=== PATIENT | male | born 1955 | race Caucasian/White ===

== ENCOUNTER 2021-12-11 15:08 | Inpatient (IN) | payer MEDICARE, BC, MEDICAID ==
[~2021-12-11] VITALS: Ht 177.8 cm; Wt 80.8 kg
[2021-12-11] MEDS ORDERED: acetaminophen 325mg tablet PO PRN (17:55)
[2021-12-11] MEDS ORDERED: magnesium hydroxide 30ml (MOM) UD suspension PO PRN (17:55)
[2021-12-11] MEDS ORDERED: loperamide 2mg capsule PO PRN (17:55)
[2021-12-11] MEDS ORDERED: mag hydrox/Alum hydrox/simeth 30ml oral suspension PO PRN (17:55)
--- NOTE | 2021-12-11 17:58 | NUR ---
Admit note: PT admitted today on 5150 for DTS from [facility] at 1730. Pt stated he wanted to end his life. He wants to "blow his brains out or drive his truck off of a sai." Pt has history of depression, HTN, AFIB ETOH.
[2021-12-11 19:00] VITALS: BP 152/95
[2021-12-11] MEDS ORDERED: ASPI81TA52 PO (19:43)
[2021-12-11] MEDS ORDERED: POTA-192 PO (19:44)
[2021-12-11] MEDS ORDERED: THIA100T70 PO (19:46)
[2021-12-11] MEDS ORDERED: CYCL-394 PO (19:48)
[2021-12-11] MEDS ORDERED: FOLI0.4T6 PO (19:49)
[2021-12-11] MEDS ORDERED: IBUP-1984 PO (19:51)
[2021-12-11] MEDS ORDERED: LISI20TA28 PO (19:52)
[2021-12-11] MEDS ORDERED: LEVO150T PO (19:52)
[2021-12-11] MEDS ORDERED: MAGN200T5 PO (19:53)
[2021-12-11] MEDS ORDERED: OMEP20TA23 PO (19:54)
[2021-12-11] MEDS ORDERED: SPIR25TA5 PO (19:55)
[2021-12-11] MEDS ORDERED: lisinopril 10 MG tablet PO ONE (20:55)
[2021-12-11] MEDS: cyclobenzaprine 10mg tablet PO PRN (21:12)
[2021-12-11] MEDS: traZODone 50mg tablet PO PRN (21:12)
[2021-12-11] MEDS: acetaminophen 325mg tablet PO PRN (21:20)
[2021-12-12 08:00] VITALS: BP 101/62
[2021-12-12] MEDS: pantoprazole 40mg Tablet.DR PO SCH (08:05)
[2021-12-12] MEDS: folic acid 0.4mg tablet PO SCH (08:05)
[2021-12-12] MEDS: spironolactone 25 MG tablet PO SCH (08:06)
[2021-12-12] MEDS: aspirin 81mg, enteric-coated 1 TAB TABLET.DR PO SCH (08:06)
[2021-12-12] MEDS: thiamine 100mg tablet PO SCH (08:06)
[2021-12-12 09:19] LABS: HEMOGLOBIN A1C 5.4 % (4.5-6.2)
[2021-12-12 09:30] LABS: CHOL/HDL RATIO 3.8 (0.00-4.99); CHOLESTEROL 181 MG/DL (0-200); HDL CHOLESTEROL 48 MG/DL (35-60); LDL CHOLESTEROL 112 MG/DL (50-100); MAGNESIUM 1.6 MG/DL (1.5-2.4)
[2021-12-12 15:08] LABS: TRIGLYCERIDES 99 MG/DL (20-135)
[2021-12-12 19:36] VITALS: BP 99/60
[2021-12-12] MEDS: traZODone 50mg tablet PO PRN (20:22)
[2021-12-12] MEDS: sertraline 25mg tablet PO SCH (20:24)
[2021-12-12 20:31] VITALS: BP 125/79
[2021-12-12] MEDS: lisinopril 10 MG tablet PO SCH (20:31)
--- NOTE | 2021-12-13 05:44 | NUR ---
Nursing Progress Note Problem: PT admitted today on 5150 for DTS from [facility] at 1730. Pt stated he wanted to end his life. He wants to "blow his brains out or drive his truck off of a sai." Pt has history of depression, HTN, AFIB ETOH. Interventions: Maintained a safe and supportive environment, ensured contract for safety, provided clear and simple instructions, maintained fall precautions, monitored behavior and provided redirection as needed, and maintained Q 15min safety checks. Response: Patient is pleasant and cooperative with care; compliant with medication. PRN Trazodone provided. Patient denies SI, HI, A/VH this shift; no apparent delusions expressed. He was observed watching TV and participated in HS snack prior to bed; observed sleeping and does not appear to be having difficulty. Plan: Pt. requires a safe and supportive environment, medication titration until effective dose, needs to be monitored for crisis stabilization.
[2021-12-13] MEDS ORDERED: levoTHYROXINE 25mcg tablet PO SCH (07:00)
[2021-12-13 08:00] VITALS: BP 106/69
[2021-12-13] MEDS ORDERED: sertraline 25mg tablet PO SCH (08:00)
[2021-12-13] MEDS: folic acid 0.4mg tablet PO SCH (08:32)
[2021-12-13] MEDS: pantoprazole 40mg Tablet.DR PO SCH (08:33)
[2021-12-13] MEDS: thiamine 100mg tablet PO SCH (08:33)
[2021-12-13] MEDS: levoTHYROXINE 75mcg tablet PO SCH (08:33)
[2021-12-13] MEDS: aspirin 81mg, enteric-coated 1 TAB TABLET.DR PO SCH (08:33)
[2021-12-13] MEDS: spironolactone 25 MG tablet PO SCH (08:34)
[2021-12-13] MEDS: ibuprofen tablet 400 MG TABLET PO PRN (10:32)
--- NOTE | 2021-12-13 16:22 | NUR ---
Nursing Progress Note: Giorgi Problem: PT admitted today on 5150 for DTS from [facility] at 1730. Pt stated he wanted to end his life. He wants to "blow his brains out or drive his truck off of a sai." Pt has history of depression, HTN, AFIB ETOH. Interventions: Maintained a safe and supportive environment, ensured contract for safety, provided clear and simple instructions, maintained fall precautions, monitored behavior and provided redirection as needed, and maintained Q 15min safety checks. Response: Patient awake and reading a book, he took his medication without hesitation and was given ibuprofen for c/o back pain. Pt. denies SI at this moment and denies HI, A/VH, he became agitated easily during our conversation and stated I guess Im fucking better Im eating food instead of drinking my breakfast he was able to settle himself but quickly seemed angry with most interaction. Pt. ate his meals in the dining room with cohorts but isolates to self, and spent most of the shift in bed reading. Pt. presents with fair hygiene, un brushed hair, and wearing unit scrubs. Plan: Pt. requires a safe and supportive environment, medication titration until effective dose, needs to be monitored for crisis stabilization.
[2021-12-13 20:00] VITALS: BP 100/60
[2021-12-13] MEDS: lisinopril 10 MG tablet PO SCH (21:00)
[2021-12-13] MEDS: traZODone 50mg tablet PO PRN (21:32)
[2021-12-13] MEDS: sertraline 25mg tablet PO SCH (21:32)
--- NOTE | 2021-12-14 02:02 | NUR ---
Nursing Progress Note: Giorgi Problem: PT admitted today on 5150 for DTS from [facility] at 1730. Pt stated he wanted to end his life. He wants to "blow his brains out or drive his truck off of a sai." Pt has history of depression, HTN, AFIB ETOH. Interventions: Maintained a safe and supportive environment, ensured contract for safety, provided clear and simple instructions, maintained fall precautions, monitored behavior and provided redirection as needed, and maintained Q 15min safety checks. Response: Patient in room at shift change. The patient mostly isolated to self. The patient denies A/VH SI HI. The patient made conversations brief but otherwise polite and cooperative. The patient ate snack in the community room at snack change. The patient requested Trazodone for sleep. The patient took all evening meds w/o complications. The patient went to bed shortly after. Plan: Pt. requires a safe and supportive environment, medication titration until effective dose, needs to be monitored for crisis stabilization.
[2021-12-14] MEDS: aspirin 81mg, enteric-coated 1 TAB TABLET.DR PO SCH (07:35)
[2021-12-14] MEDS: pantoprazole 40mg Tablet.DR PO SCH (07:35)
[2021-12-14] MEDS: levoTHYROXINE 75mcg tablet PO SCH (07:35)
[2021-12-14] MEDS: spironolactone 25 MG tablet PO SCH (07:36)
[2021-12-14] MEDS: thiamine 100mg tablet PO SCH (07:36)
[2021-12-14] MEDS: folic acid 0.4mg tablet PO SCH (07:36)
[2021-12-14 08:00] VITALS: BP 124/71
--- NOTE | 2021-12-14 16:59 | NUR ---
Nursing Progress Note: Giorgi Problem: Pt. admitted today on 5150 for DTS from [facility] at 1730. Pt stated he wanted to end his life. He wants to "blow his brains out or drive his truck off of a sai." Pt has history of depression, HTN, AFIB ETOH. Interventions: Maintained a safe and supportive environment, ensured contract for safety, provided clear and simple instructions, maintained fall precautions, monitored behavior and provided redirection as needed, and maintained Q 15min safety checks. Response: Patient received awake and reading a book, he reported I slept well although sleep hours documented were 3.5 hrs. He took his medication without hesitation and refused needing ibuprofen for his back ache. Pt. presents calmer then yesterday and denies SI, HI, A/VH and continues with his plan to go homer to [place] when DCd. Pt. socialized with his staff in his room throughout the shift. He is disheveled and his hygiene is fair. He spent most of the shift in his room, and ate all meals in the dining room. Plan: Pt. requires a safe and supportive environment, medication titration until effective dose, needs to be monitored for crisis stabilization.
[2021-12-14 20:00] VITALS: BP 120/76
[2021-12-14] MEDS: traZODone 50mg tablet PO PRN (20:47)
[2021-12-14] MEDS: sertraline 25mg tablet PO SCH (20:47)
[2021-12-14] MEDS: lisinopril 10 MG tablet PO SCH (20:47)
--- NOTE | 2021-12-15 01:26 | NUR ---
Nursing Progress Note: Giorgi Problem: PT admitted today on 5150 for DTS from [facility] at 1730. Pt stated he wanted to end his life. He wants to "blow his brains out or drive his truck off of a sai." Pt has history of depression, HTN, AFIB ETOH. Interventions: Maintained a safe and supportive environment, ensured contract for safety, provided clear and simple instructions, maintained fall precautions, monitored behavior and provided redirection as needed, and maintained Q 15min safety checks. Response: The patient was laying in bed conversing with roommate at shift change. The patient walked around the unit and conversed with peers and sat in the community room on occasion. The patient denies A/VH SI HI. Patient did claim to hear voices after he had been drinking for awhile but doesn't now that he is sober. The patient took evening meds w/o complications. The patient went to bed shortly after. Plan: Pt. requires a safe and supportive environment, medication titration until effective dose, needs to be monitored for crisis stabilization.
[2021-12-15 07:37] VITALS: BP 109/67
[2021-12-15] MEDS: spironolactone 25 MG tablet PO SCH (07:58)
[2021-12-15] MEDS: pantoprazole 40mg Tablet.DR PO SCH (07:58)
[2021-12-15] MEDS: levoTHYROXINE 75mcg tablet PO SCH (07:58)
[2021-12-15] MEDS: aspirin 81mg, enteric-coated 1 TAB TABLET.DR PO SCH (07:58)
[2021-12-15] MEDS: folic acid 0.4mg tablet PO SCH (07:58)
[2021-12-15] MEDS: thiamine 100mg tablet PO SCH (07:58)
--- NOTE | 2021-12-15 15:34 | NUR ---
[employer] Client attended group. Group focus was resilience and responding to change, specifically psychosocial education about change-related anxiety, and coping mechanisms. Group was a peer discussion, sharing ideas. Peer ideas included smells (essential oils, things that smell like peppermint), talking to someone, walking, hydrating and eating, trying to get good sleep, and avoiding using substances specifically alcohol to try to get some sleep. Client shared using alcohol for anxiety, and that he actually sleeps better when he is sober. Client participated in group appropriately, and actively.
--- NOTE | 2021-12-15 16:07 | NUR ---
Nursing Progress Note: Giorgi Problem: Pt. admitted today on 5150 for DTS from [facility] at 1730. Pt stated he wanted to end his life. He wants to "blow his brains out or drive his truck off of a sai." Pt has history of depression, HTN, AFIB ETOH. Interventions: Maintained a safe and supportive environment, ensured contract for safety, provided clear and simple instructions, maintained fall precautions, monitored behavior and provided redirection as needed, and maintained Q 15min safety checks. Response: Patient received awake and lying in bed. He took his medications without hesitation and went to breakfast. Pt. denies SI, HI, A/VH and plans to DC to [place]. Pt. stated Im tired of these fucking eggs, every day the same fucking eggs He returned to his room after breakfast and socialized with staff. Pt. presents as disheveled and has the same clothes on from yesterday. He ate all meals in the main dining room with cohorts socializing at times. Plan: Pt. requires a safe and supportive environment, medication titration until effective dose, needs to be monitored for crisis stabilization.
[2021-12-15] MEDS: ibuprofen tablet 400 MG TABLET PO PRN (16:56)
[2021-12-15 19:21] VITALS: BP 106/56
[2021-12-15] MEDS: traZODone 50mg tablet PO PRN (20:15)
[2021-12-15] MEDS: sertraline 25mg tablet PO SCH (20:15)
[2021-12-15] MEDS: lisinopril 10 MG tablet PO SCH (20:17)
--- NOTE | 2021-12-16 02:00 | NUR ---
Nursing Progress Note: Giorgi Problem: PT admitted today on 5150 for DTS from [facility] at 1730. Pt stated he wanted to end his life. He wants to "blow his brains out or drive his truck off of a sai." Pt has history of depression, HTN, AFIB ETOH. Interventions: Maintained a safe and supportive environment, ensured contract for safety, provided clear and simple instructions, maintained fall precautions, monitored behavior and provided redirection as needed, and maintained Q 15min safety checks. Response: Patient was in bed at change of shift. Patient did get up for snack and RN chatted with patient while he was in line. Patient was smiling and in no distress. RN gave patient his night time meds. Patient denies SI/HI and denies A/V hallucinations. Patient given his meds and patient took as prescribed. Patient's oxygen sat dropped this evening per electronic warfare technician. The tech attempted to assist patient with his oxygen but patient did not want the help. Patient denies SOB at this time. Plan: Pt. requires a safe and supportive environment, medication titration until effective dose, needs to be monitored for crisis stabilization.
[2021-12-16 07:32] VITALS: BP 105/58
--- NOTE | 2021-12-16 07:37 | NUR ---
Initial: Pt admitted w/ major depressive disorder per EMR. Currently on Heart Healthy diet w/ mostly 100% intake of meals meeting est needs at this time. Recommend liberalizing to Regular diet. LBM 12/15. Will continue to monitor. Recs: 1. Liberalize to Regular diet 2. Bowel care PRN 3. Routine thiamine, folic acid for EtOH hx 4. Weekly wts Addendum: 12/16/21 at [address] Amended: Links added.
[2021-12-16] MEDS: levoTHYROXINE 75mcg tablet PO SCH (08:02)
[2021-12-16] MEDS: spironolactone 25 MG tablet PO SCH (08:02)
[2021-12-16] MEDS: aspirin 81mg, enteric-coated 1 TAB TABLET.DR PO SCH (08:02)
[2021-12-16] MEDS: pantoprazole 40mg Tablet.DR PO SCH (08:03)
[2021-12-16] MEDS: naltrexone 50mg tablet PO SCH (08:03)
[2021-12-16] MEDS: thiamine 100mg tablet PO SCH (08:03)
[2021-12-16] MEDS: folic acid 0.4mg tablet PO SCH (08:03)
[2021-12-16 12:40] VITALS: BP 114/56
--- NOTE | 2021-12-16 17:49 | NUR ---
Nursing Progress Note: Problem: Patient admitted today on 5150 for DTS from [facility] at 1730. Pt stated he wanted to end his life. He wants to "blow his brains out or drive his truck off of a sai." Pt has history of depression, HTN, AFIB ETOH. Interventions: Maintained a safe and supportive environment, ensured contract for safety, provided clear and simple instructions, maintained fall precautions, monitored behavior and provided redirection as needed, and maintained Q 15min safety checks. Response: Patient awakened at approximately 0745 and went to the Community Room for breakfast. Patient was pleasant and cooperative at all time today. Smiling and talking with peers or watching TV in the Community Room. Patient denies SI/AH/VH. Patient rested in bed for short periods of time after meals, then would return to the Community Room to ambulating in the hallway or watching TV. Patient took his medications without hesitation. Patient states Im feeling just a little bit better today. Plan: Pt. requires a safe and supportive environment, medication titration until effective dose, needs to be monitored for crisis stabilization.
[2021-12-16 20:00] VITALS: BP 117/82
[2021-12-16] MEDS: sertraline 25mg tablet PO SCH (20:19)
[2021-12-16] MEDS: lisinopril 10 MG tablet PO SCH (20:19)
[2021-12-16] MEDS: acetaminophen 325mg tablet PO PRN (20:21)
--- NOTE | 2021-12-17 02:42 | NUR ---
Nursing Progress Note: Problem: Patient admitted today on 5150 for DTS from [facility] at 1730. Pt stated he wanted to end his life. He wants to "blow his brains out or drive his truck off of a sai." Pt has history of depression, HTN, AFIB ETOH. Interventions: Maintained a safe and supportive environment, ensured contract for safety, provided clear and simple instructions, maintained fall precautions, monitored behavior and provided redirection as needed, and maintained Q 15min safety checks. Response: Patient was lying in bed, awake at change of shift, 1:1 done at bedside and medications administered with no issues. Pt is unsure of the year, stating he thought it was 1985. Patient denies S/HI, A/VH. When asked if he is feeling any better he stated, Im not feeling any worse than I was. Giorgi was polite and making small talk with nurse. Patient received Tylenol for lower back pain 08/23 at 2020 with effective results. Plan: Pt. requires a safe and supportive environment, medication titration until effective dose, needs to be monitored for crisis stabilization.
[2021-12-17] MEDS: levoTHYROXINE 75mcg tablet PO SCH (08:08)
[2021-12-17] MEDS: folic acid 0.4mg tablet PO SCH (08:10)
[2021-12-17] MEDS: pantoprazole 40mg Tablet.DR PO SCH (08:10)
[2021-12-17] MEDS: naltrexone 50mg tablet PO SCH (08:10)
[2021-12-17] MEDS: thiamine 100mg tablet PO SCH (08:10)
[2021-12-17] MEDS: aspirin 81mg, enteric-coated 1 TAB TABLET.DR PO SCH (08:10)
[2021-12-17] MEDS: spironolactone 25 MG tablet PO SCH (08:10)
[2021-12-17 08:27] VITALS: BP 99/63
--- NOTE | 2021-12-17 13:35 | NUR ---
5250 upheld for DTS and GD
--- NOTE | 2021-12-17 17:25 | NUR ---
Nursing Progress Note: Problem: Patient admitted today on 5150 for DTS from [facility] at 1730. Pt stated he wanted to end his life. He wants to "blow his brains out or drive his truck off of a sai." Pt has history of depression, HTN, AFIB ETOH. Interventions: Maintained a safe and supportive environment, ensured contract for safety, provided clear and simple instructions, maintained fall precautions, monitored behavior and provided redirection as needed, and maintained Q 15min safety checks. Response: Received patient who was resting in bed at approximately 0730 this morning. Patient is pleasant and cooperative and is teasing using his humor and laughing. Patient states I didnt sleep much last night and figured out this morning that they did not give me my Trazodone. I need to take my Trazodone or Ill never sleep. Informed the patient that this Soldering Machine Operator Helper will attempt to remind them to give you your Trazodone, but also reminded the patient that he can ask for the Trazodone anytime. Patient sat with peers at breakfast and attempted to help others by opening condiments for them. Patient took his medications without hesitation, and informed that during his patient interview that he did not feel suicidal at this time. Patient did inform me about his dissatisfaction regarding his roommate. Patient worked with Layne Certified Hand Therapist, to accomplish some goals today. Plan: Pt. requires a safe and supportive environment, medication titration until effective dose, needs to be monitored for crisis stabilization.
[2021-12-17 19:00] VITALS: BP 122/78
[2021-12-17 20:00] VITALS: BP 122/78
[2021-12-17] MEDS: sertraline 25mg tablet PO SCH (21:00)
[2021-12-17] MEDS: lisinopril 10 MG tablet PO SCH (21:00)
[2021-12-17] MEDS: traZODone 50mg tablet PO PRN (23:57)
[2021-12-17] MEDS: cyclobenzaprine 10mg tablet PO PRN (23:57)
[2021-12-17] MEDS: ibuprofen tablet 400 MG TABLET PO PRN (23:58)
--- NOTE | 2021-12-18 01:21 | NUR ---
Nursing Progress Note: Problem: Patient admitted today on 5150 for DTS from [facility] at 1730. Pt stated he wanted to end his life. He wants to "blow his brains out or drive his truck off of a sai." Pt has history of depression, HTN, AFIB ETOH. Interventions: Maintained a safe and supportive environment, ensured contract for safety, provided clear and simple instructions, maintained fall precautions, monitored behavior and provided redirection as needed, and maintained Q 15min safety checks. Response: Patient Is out of his room for a short time only following shift change. He primarily isolated. Patient denies S/I, H/I, or any hallucinations. The patient is medication compliant. Primarily complaints are shoulder and back pain, along with problems sleeping. Patient was given including Motrin, muscle relaxants, and Trazadone for sleep. Plan: Pt. requires a safe and supportive environment, medication titration until effective dose, needs to be monitored for crisis stabilization.
[2021-12-18] MEDS: traZODone 50mg tablet PO PRN ×2 (03:15→20:38)
[2021-12-18] MEDS: levoTHYROXINE 75mcg tablet PO SCH (06:54)
[2021-12-18] MEDS: folic acid 0.4mg tablet PO SCH (08:03)
[2021-12-18] MEDS: naltrexone 50mg tablet PO SCH (08:04)
[2021-12-18] MEDS: pantoprazole 40mg Tablet.DR PO SCH (08:04)
[2021-12-18] MEDS: aspirin 81mg, enteric-coated 1 TAB TABLET.DR PO SCH (08:04)
[2021-12-18] MEDS: thiamine 100mg tablet PO SCH (08:04)
[2021-12-18] MEDS: spironolactone 25 MG tablet PO SCH (08:04)
[2021-12-18 08:52] VITALS: BP 122/72
[2021-12-18] MEDS: cyclobenzaprine 10mg tablet PO PRN ×2 (09:19→20:42)
--- NOTE | 2021-12-18 16:13 | NUR ---
Nursing Progress Note: Problem: Patient admitted today on 5150 for DTS from [facility] at 1730. Pt stated he wanted to end his life. He wants to "blow his brains out or drive his truck off of a sai." Pt has history of depression, HTN, AFIB ETOH. Interventions: Maintained a safe and supportive environment, ensured contract for safety, provided clear and simple instructions, maintained fall precautions, monitored behavior and provided redirection as needed, and maintained Q 15min safety checks. Response: Nurse received pt. asleep in bed, pt. awoken to administer 0700 medications, pt. then went back to sleep. Patient awoke to attend breakfast and 0800 medications administered at this time with no issues. Pt returned to bed and 1:1 done at bedside. Pt. stated he slept good. Denies SI/HI but states he is never hopeful and whatever happens, happens. He denies ETOH cravings, stating they are non-existent which is weird for me. Flexeril administered at 0920 for right arm muscle aches with effective results. Patient was pleasant, joking with nurse and laughing during interactions. Patient attended group and lunch this shift. Plan: Pt. requires a safe and supportive environment, medication titration until effective dose, needs to be monitored for crisis stabilization.
[2021-12-18 19:00] VITALS: BP 107/68
[2021-12-18] MEDS: sertraline 25mg tablet PO SCH (20:36)
[2021-12-18] MEDS: lisinopril 10 MG tablet PO SCH (20:37)
--- NOTE | 2021-12-19 01:34 | NUR ---
Nursing Progress Note: Problem: Patient admitted today on 5150 for DTS from [facility] at 1730. Pt stated he wanted to end his life. He wants to "blow his brains out or drive his truck off of a sai." Pt has history of depression, HTN, AFIB ETOH. Interventions: Maintained a safe and supportive environment, ensured contract for safety, provided clear and simple instructions, maintained fall precautions, monitored behavior and provided redirection as needed, and maintained Q 15min safety checks. Response:Patient self isolated in his room following shift change. He is medication compliant and cooperative. He denies S/I, H/I, or any hallucinations. Plan: Pt. requires a safe and supportive environment, medication titration until effective dose, needs to be monitored for crisis stabilization.
[2021-12-19] MEDS: pantoprazole 40mg Tablet.DR PO SCH (07:45)
[2021-12-19] MEDS: levoTHYROXINE 75mcg tablet PO SCH (07:45)
[2021-12-19] MEDS: thiamine 100mg tablet PO SCH (07:45)
[2021-12-19] MEDS: aspirin 81mg, enteric-coated 1 TAB TABLET.DR PO SCH (07:45)
[2021-12-19] MEDS: spironolactone 25 MG tablet PO SCH (07:46)
[2021-12-19] MEDS: folic acid 0.4mg tablet PO SCH (07:47)
[2021-12-19] MEDS: naltrexone 50mg tablet PO SCH (07:47)
[2021-12-19 08:00] VITALS: BP 98/52
--- NOTE | 2021-12-19 17:14 | NUR ---
Nursing Progress Note: Problem: Patient admitted today on 5150 for DTS from [facility] at 1730. Pt stated he wanted to end his life. He wants to "blow his brains out or drive his truck off of a sai." Pt has history of depression, HTN, AFIB ETOH. Interventions: Maintained a safe and supportive environment, ensured contract for safety, provided clear and simple instructions, maintained fall precautions, monitored behavior and provided redirection as needed, and maintained Q 15min safety checks. Response: Patient was up for breakfast this morning. He accepted his medications. He makes comments that are usually funny, but sometimes not understood. Patient remains calm and cooperative. He denies all MH symptoms, but continues to appear depressed. Patient has trouble remembering to ask for Trazodone at night, rather than lying there awake. He states that hes just relaxing today, and realizes there are details that need to be taken care of before discharging. Plan: Pt. requires a safe and supportive environment, medication titration until effective dose, needs to be monitored for crisis stabilization.
[2021-12-19 20:00] VITALS: BP 104/67
[2021-12-19] MEDS: traZODone 50mg tablet PO PRN (21:28)
[2021-12-19] MEDS: sertraline 25mg tablet PO SCH (21:29)
[2021-12-19] MEDS: lisinopril 10 MG tablet PO SCH (21:29)
--- NOTE | 2021-12-20 05:56 | NUR ---
Nursing Progress Note: Problem: Patient admitted today on 5150 for DTS from [facility] at 1730. Pt stated he wanted to end his life. He wants to "blow his brains out or drive his truck off of a sai." Pt has history of depression, HTN, AFIB ETOH. Interventions: Maintained a safe and supportive environment, ensured contract for safety, provided clear and simple instructions, maintained fall precautions, monitored behavior and provided redirection as needed, and maintained Q 15min safety checks. Response:Patient self isolated in his room following shift change. He is medication compliant and cooperative. He denies S/I, H/I, or any hallucinations. Plan: Pt. requires a safe and supportive environment, medication titration until effective dose, needs to be monitored for crisis stabilization.
[2021-12-20] MEDS: naltrexone 50mg tablet PO SCH (07:58)
[2021-12-20] MEDS: levoTHYROXINE 75mcg tablet PO SCH (07:58)
[2021-12-20] MEDS: aspirin 81mg, enteric-coated 1 TAB TABLET.DR PO SCH (07:58)
[2021-12-20] MEDS: spironolactone 25 MG tablet PO SCH (07:58)
[2021-12-20] MEDS: folic acid 0.4mg tablet PO SCH (07:59)
[2021-12-20] MEDS: pantoprazole 40mg Tablet.DR PO SCH (07:59)
[2021-12-20 08:00] VITALS: BP 102/63
[2021-12-20] MEDS: thiamine 100mg tablet PO SCH (08:00)
--- NOTE | 2021-12-20 17:10 | NUR ---
Nursing Progress Note: Problem: Patient admitted today on 5150 for DTS from [facility] at 1730. Pt stated he wanted to end his life. He wants to "blow his brains out or drive his truck off of a sai." Pt has history of depression, HTN, AFIB ETOH. Interventions: Maintained a safe and supportive environment, ensured contract for safety, provided clear and simple instructions, maintained fall precautions, monitored behavior and provided redirection as needed, and maintained Q 15min safety checks. Response: Received patient while he was waking up at 0800 to go to the Community Room for breakfast. Patient is pleasant and cooperative and reports I slept really well last night. Patient took his 0800 morning medications without hesitation and had a good appetite for breakfast. Patient rested on his bed much of the morning then went to the Community Room and watched TV. During the Patient Interview, the patient denies SI/AV/AH at this time. Will continue to support the patient. Plan: Pt. requires a safe and supportive environment, medication titration until effective dose, needs to be monitored for crisis stabilization.
[2021-12-20 19:58] VITALS: BP 96/61
[2021-12-20] MEDS: sertraline 25mg tablet PO SCH (20:53)
[2021-12-20] MEDS: lisinopril 10 MG tablet PO SCH (20:53)
[2021-12-20] MEDS ORDERED: traZODone 50mg tablet PO SCH (21:00)
--- NOTE | 2021-12-21 05:05 | NUR ---
Nursing Progress Note: Problem: Patient admitted today on 5150 for DTS from [facility] at 1730. Pt stated he wanted to end his life. He wants to "blow his brains out or drive his truck off of a sai." Pt has history of depression, HTN, AFIB ETOH. Interventions: Maintained a safe and supportive environment, ensured contract for safety, provided clear and simple instructions, maintained fall precautions, monitored behavior and provided redirection as needed, and maintained Q 15min safety checks. Response: Patient is pleasant and cooperative with care; compliant with medication. Lisinopril was held for decreased SBP. PRN Trazodone provided. He denies SI, HI, A/VH; no apparent delusions expressed. Patient observed watching TV with peers, social with room mate and participated in HS snack prior to bed; observed sleeping and does not appear to be having difficult. Plan: Pt. requires a safe and supportive environment, medication titration until effective dose, needs to be monitored for crisis stabilization.
[2021-12-21 08:00] VITALS: BP 115/64
[2021-12-21 08:14] VITALS: BP_SYST 115
[2021-12-21] MEDS: levoTHYROXINE 75mcg tablet PO SCH (08:14)
[2021-12-21] MEDS: spironolactone 25 MG tablet PO SCH (08:14)
[2021-12-21] MEDS: aspirin 81mg, enteric-coated 1 TAB TABLET.DR PO SCH (08:15)
[2021-12-21] MEDS: pantoprazole 40mg Tablet.DR PO SCH (08:15)
[2021-12-21] MEDS: folic acid 0.4mg tablet PO SCH (08:15)
[2021-12-21] MEDS: naltrexone 50mg tablet PO SCH (08:15)
[2021-12-21] MEDS: thiamine 100mg tablet PO SCH (08:15)
--- NOTE | 2021-12-21 11:51 | NUR ---
DISCHARGE PLAN Pt. to discharge today back to his home in [place], [place]. [facility] to transport him back home at 2 PM. Layne Segal LCSW
[2021-12-21] MEDS ORDERED: NALT50TA PO (12:28)
[2021-12-21] MEDS ORDERED: FOLI0.4T14 PO (12:28)
[2021-12-21] MEDS ORDERED: thiamine tablet PO (12:28)
[2021-12-21] MEDS ORDERED: TRAZ-256 PO (12:28)
[2021-12-21] MEDS ORDERED: SERT-433 PO (12:28)
[2021-12-21] MEDS ORDERED: THIA50TA10 PO (12:30)
--- NOTE | 2021-12-21 13:50 | NUR ---
Discharge Note: 12/21/21 at 1350 Received discharge instructions from Dr. Cortez for patient to discharge to home today. Reviewed all discharge paperwork with the patient. Reviewed discharge medications with the patient. Informed the patient which medications that he received today, and which medications were ordered for later today. Patients belongings were reviewed with the patient and he signed that he had received them. [facility] from [facility] was 1350.
== END 2021-12-21 13:48 | disposition home or self-care (01) | DRG 885 ==
LOC: ADULT MH 18:06
PROVIDERS: ADMIT Psychiatry & Neurology Psychiatry; ATTEND Psychiatry & Neurology Psychiatry
DX: F33.2 Major depressive disorder, recurrent severe without psychotic features (principal); R45.851 Suicidal ideations; F10.20 Alcohol dependence, uncomplicated; E03.9 Hypothyroidism, unspecified; G89.29 Other chronic pain; M54.9 Dorsalgia, unspecified; E66.3 Overweight; F17.220 Nicotine dependence, chewing tobacco, uncomplicated; I10 Essential (primary) hypertension; K21.9 Gastro-esophageal reflux disease without esophagitis; M25.511 Pain in right shoulder; Z91.030 Bee allergy status; Z79.899 Other long term (current) drug therapy; Z79.82 Long term (current) use of aspirin; Z68.25 Body mass index [BMI] 25.0-25.9, adult
CPT/HCPCS: 36415; 80061; 83036; 83735; 84443; 87081